=== PATIENT | female | born 1945 ===

== ENCOUNTER 2016-10-25 08:19 | Day surgery (SDC) | payer MEDICAID ==
[2016-10-25] MEDS ORDERED: Lactated Ringer's 500 ML IV ONE (08:56)
[2016-10-25] MEDS ORDERED: Propofol 10 mg/ml Inj (20 ML) ONE (09:13)
[2016-10-25] MEDS ORDERED: Lidocaine 2% MPF (5 ml) Inj ONE (09:13)
[2016-10-25 10:29] VITALS: TEMP 96.9
[2016-10-25 10:54] VITALS: BP 112/56; PULSE 68; RESP 20; O2SAT 99
== END 2016-10-25 12:40 | disposition home or self-care (01) ==
LOC: H.ENDO 08:19
PROVIDERS: ATTEND Internal Medicine Gastroenterology
DX: K30 Functional dyspepsia (principal); E11.9 Type 2 diabetes mellitus without complications; E78.5 Hyperlipidemia, unspecified; I10 Essential (primary) hypertension; F41.8 Other specified anxiety disorders
CPT/HCPCS: 43239; 88305; J2704; J7120

== ENCOUNTER 2017-01-14 11:15 | Emergency (ER) | payer MEDICAID ==
[2017-01-14 11:24] VITALS: RESP 16; TEMP 98.6
[2017-01-14] MEDS ORDERED: Sodium Chloride 0.9% 500 ML IV STA (11:49)
--- NOTE | 2017-01-14 12:04 | ED PDOC ---
HPI: Abdomen Time Seen by Provider: 01/14/17 11:36 Chief Complaint (Nursing): Abdominal Pain Chief Complaint (Provider): Vomiting, diarrhea, abdominal pain History Per: Patient History/Exam Limitations: no limitations Onset/Duration Of Symptoms: Days (1) Outside of [place] travel?: No Current Symptoms Are (Timing): Still Present Associated Symptoms: Diarrhea. denies: Fever, Chest Pain Additional History Per: Patient Additional Complaint(s): 71yo female, presents to ED for evaluation after she had 2 episodes of vomiting yesterday and had decreased appetite. She also reports today she had 8 episodes of non-bloody diarrhea, 1 episode of pink urine and also abdominal pain. Patient denies any fever, chest pain, shortness of breath or dysuria. No other medical complaints. Abnormal Vaginal Bleeding: No Past Medical History Reviewed: Historical Data, Nursing Documentation, Vital Signs Vital Signs: Last Vital Signs Temp 98.6 F 01/14/17 11:23 Pulse 80 01/14/17 19:25 Resp 16 01/14/17 19:25 BP 101/54 L 01/14/17 19:25 Pulse Ox 99 01/14/17 19:25 - Medical History PMH: Anxiety, Depression, Diabetes, HTN, Hypercholesterolemia Denies: Chronic Kidney Disease - Surgical History Surgical History: Hernia Repair (umbilical), - Family History Family History: States: No Known Family Hx, Unknown Family Hx - Home Medications Home Medications: Ambulatory Orders Medication Instructions Recorded Aspirin [Ecotrin] 81 mg PO DAILY 12/04/15 Lisinopril [Zestril] 2.5 mg PO DAILY 10/25/16 Sitagliptin Phos/Metformin HCl 1 each PO BID 10/25/16 [Janumet 50-1,000 mg Tablet] Ciprofloxacin [Cipro] 500 mg PO BID #19 tab 01/14/17 Dicyclomine [Bentyl] 20 mg PO QID PRN #10 tab 01/14/17 metroNIDAZOLE [Flagyl] 500 mg PO TID #29 tab 01/14/17 - Allergies Allergies/Adverse Reactions: Allergies Allergy/AdvReac Type Severity Reaction Status Date / Time No Known Allergies Allergy Verified 01/14/17 11:29 Review of Systems ROS Statement: Except As Marked, All Systems Reviewed And Found Negative Constitutional: Negative for: Fever, Chills Cardiovascular: Negative for: Chest Pain Respiratory: Negative for: Shortness of Breath Gastrointestinal: Positive for: Vomiting, Abdominal Pain, Diarrhea Physical Exam - Reviewed Nursing Documentation Reviewed: Yes Vital Signs Reviewed: Yes - Physical Exam Appears: Positive for: Non-toxic, No Acute Distress Head Exam: Positive for: ATRAUMATIC, NORMAL INSPECTION, NORMOCEPHALIC Skin: Positive for: Normal Color Neck: Positive for: Supple Cardiovascular/Chest: Positive for: Regular Rate, Rhythm Respiratory: Positive for: Normal Breath Sounds. Negative for: Respiratory Distress Gastrointestinal/Abdominal: Positive for: Soft, Tenderness (bilateral lower quadrant tendrness). Negative for: Guarding, Rebound Neurologic/Psych: Positive for: Alert, Oriented - Laboratory Results Result Diagrams: 01/14/17 12:12 01/14/17 12:12 - ECG O2 Sat by Pulse Oximetry: 96 (RA) Pulse Ox Interpretation: Normal Medical Decision Making Medical Decision Making: Time: 1147 Impression: Gastroenteritis, UTI, appendicitis, colitis Plan: -- CT AP w/ IV Contrast -- Labs -- Morphine 2mg IV -- Zofran 4mg IV -- IV Fluids Reassess Accession No. : [id number] Patient Name / ID : LEWIS DIANE / [id number] Exam Date : 01/14/2017 16:18:28 ( Approved ) Study Comment : Sex / Age : F / 71Y Creator : Houston George MD Dictator : Houston George MD Filter Changer : Personnel Scheduler : Houston George MD Approver2 : Report Date : 01/14/2017 17:26:55 My Comment : PROCEDURE: CT Abdomen and Pelvis with contrast HISTORY: BLQ pain, v/d COMPARISON: None. TECHNIQUE: Contrast dose: Radiation dose: Total exam DLP = mGy-cm. This CT exam was performed using one or more of the following dose reduction techniques: Automated exposure control, adjustment of the mA and/or kV according to patient size, and/or use of iterative reconstruction technique. FINDINGS: LOWER THORAX: Unremarkable. LIVER: Unremarkable. No gross lesion or ductal dilatation. GALLBLADDER AND BILE DUCTS: Unremarkable. PANCREAS: Unremarkable. No gross lesion or ductal dilatation. SPLEEN: Unremarkable. ADRENALS: Unremarkable. No mass. KIDNEYS AND URETERS: Unremarkable. No hydronephrosis. No solid mass. VASCULATURE: Unremarkable. No aortic aneurysm. BOWEL: Few distended loops of small bowel in the right lower quadrant with distention of the cecum and ascending colon with fluid. Question mild cecal wall enhancement and thickening. No small bowel obstruction. APPENDIX: Normal appendix. PERITONEUM: Unremarkable. No free fluid. No free air. LYMPH NODES: Unremarkable. No enlarged lymph nodes. BLADDER: Unremarkable. REPRODUCTIVE: Unremarkable. BONES: No acute fracture. OTHER FINDINGS: None. IMPRESSION: Few distended loops of small bowel in the right lower quadrant with distention of the cecum and ascending colon with fluid. Question mild cecal wall enhancement and thickening. No small bowel obstruction. No appendicitis. Scribe Attestation: Documented by Tisha Yu acting as a scribe for Iliana Wood MD. Provider Attestation: All medical record entries made by the Scribe were at my direction and personally dictated by me. I have reviewed the chart and agree that the record accurately reflects my personal performance of the history, physical exam, medical decision making, and the department course for this patient. I have also personally directed, reviewed, and agree with the discharge instructions and disposition. Disposition - Clinical Impression Clinical Impression: Colitis - Disposition Referrals: Antonio Lawrence MD [Family Provider] - Disposition: Routine/Home Disposition Time: 18:51 Condition: STABLE Prescriptions: Ciprofloxacin [Cipro] 500 mg PO BID #19 tab Dicyclomine [Bentyl] 20 mg PO QID PRN #10 tab PRN Reason: Pain, Moderate (4-7) metroNIDAZOLE [Flagyl] 500 mg PO TID #29 tab Instructions: Colitis (ED) Forms: [employer] [facility] (Jordanian) Print Language: ITALIAN
[2017-01-14 12:34] LABS: BASO # 0.1 K/uL (0.0-0.2); BASO % 0.7 % (0.0-2.0); EOS # 0.2 K/uL (0.0-0.7); EOS % 1.3 % (0.0-4.0); HEMATOCRIT 41.2 % (34.0-47.0); LYMPH # 1.7 K/uL (1.0-4.3); LYMPH % 14.6 % (20.0-40.0); MEAN CELL VOLUME 87.9 fl (81.0-99.0); MEAN CORPUSCULAR HEMOGLOBIN 28.9 pg (27.0-31.0); MEAN CORPUSCULAR HGB CONC 32.9 g/dL (33.0-37.0); MEAN PLATELET VOLUME 6.9 fl (7.2-11.7); MONO # 0.5 K/uL (0.0-0.8); MONO % 4.6 % (0.0-10.0); NEUT # 9.2 K/uL (1.8-7.0); NEUT % 78.8 % (50.0-75.0); NRBC % 0.1 % (0.0-0.0); RED CELL DISTRIBUTION WIDTH 13.9 % (11.5-14.5); WHITE BLOOD COUNT 11.7 K/uL (4.8-10.8)
[2017-01-14 12:45] LABS: ALB/GLOB RATIO 1.2 (1.0-2.1); ALKALINE PHOSPHATASE 89 U/L (38-126); ALT/SGPT 43 U/L (9-52); AST/SGOT 34 U/L (14-36); BILIRUBIN,TOTAL 0.6 mg/dl (0.2-1.3); BLOOD UREA NITROGEN 15 mg/dl (7-17); CALCIUM 9.4 mg/dL (8.4-10.2); CARBON DIOXIDE 22 mmol/L (22-30); CHLORIDE 97 mmol/L (98-107); GFR AFRICAN-AMERICAN > 60; GLUCOSE,RANDOM 150 mg/dL (65-105); POTASSIUM 4.7 MMOL/L (3.6-5.0); SODIUM 131 mmol/l (132-148); TOTAL PROTEIN 7.8 G/DL (6.3-8.2)
[2017-01-14 12:46] LABS: PARTIAL THROMBOPLASTIN TIME 29.3 Seconds (25.6-37.1)
[2017-01-14 14:43] LABS: RBC URINE 7 /hpf (0-3); URINE BACTERIA RARE (<OCC); URINE BILIRUBIN NEGATIVE (NEGATIVE); URINE BLOOD SMALL (NEGATIVE); URINE COLOR YELLOW (YELLOW); URINE GLUCOSE (UA) 50 mg/dL (Normal); URINE KETONE TRACE mg/dL (NEGATIVE); URINE LEUKOCYTE ESTERASE SMALL Leu/uL (Negative); URINE PROTEIN NEGATIVE (NEGATIVE); URINE UROBILINOGEN 0.2-1.0 mg/dL (0.2-1.0); WBC URINE 15 /hpf (0-5)
[2017-01-14] MEDS ORDERED: Iohexol 300 100 ML IJ ONE (16:11)
[2017-01-14] MEDS ORDERED: metroNIDAZOLE 500mg/100ml NS 100 ML IV STA (17:28)
[2017-01-14] MEDS ORDERED: Ciprofloxacin 400mg/200ml D5W 400 MG/200 ML BAG IV STA (17:28)
--- NOTE | 2017-01-14 17:28 | CT ---
PROCEDURE: CT Abdomen and Pelvis with contrast HISTORY: BLQ pain, v/d COMPARISON: None. TECHNIQUE: Contrast dose: Radiation dose: Total exam DLP = mGy-cm. This CT exam was performed using one or more of the following dose reduction techniques: Automated exposure control, adjustment of the mA and/or kV according to patient size, and/or use of iterative reconstruction technique. FINDINGS: LOWER THORAX: Unremarkable. LIVER: Unremarkable. No gross lesion or ductal dilatation. GALLBLADDER AND BILE DUCTS: Unremarkable. PANCREAS: Unremarkable. No gross lesion or ductal dilatation. SPLEEN: Unremarkable. ADRENALS: Unremarkable. No mass. KIDNEYS AND URETERS: Unremarkable. No hydronephrosis. No solid mass. VASCULATURE: Unremarkable. No aortic aneurysm. BOWEL: Few distended loops of small bowel in the right lower quadrant with distention of the cecum and ascending colon with fluid. Question mild cecal wall enhancement and thickening. No small bowel obstruction. APPENDIX: Normal appendix. PERITONEUM: Unremarkable. No free fluid. No free air. LYMPH NODES: Unremarkable. No enlarged lymph nodes. BLADDER: Unremarkable. REPRODUCTIVE: Unremarkable. BONES: No acute fracture. OTHER FINDINGS: None. IMPRESSION: Few distended loops of small bowel in the right lower quadrant with distention of the cecum and ascending colon with fluid. Question mild cecal wall enhancement and thickening. No small bowel obstruction. No appendicitis.
[2017-01-14] MEDS ORDERED: Ciprofloxacin 400mg/200ml D5W 400 MG/200 ML BAG IVPB ONE (18:43)
[2017-01-14] MEDS ORDERED: metroNIDAZOLE 500mg/100ml NS 100 ML IVPB ONE (18:43)
[2017-01-14 19:25] VITALS: BP 101/54; PULSE 80
--- NOTE | 2017-01-17 17:37 | CARD ---
APPROVED REPORT EKG Measurement Heart [id number] <Conclusion> Normal sinus rhythm Normal ECG
[2017-01-21 12:18] VITALS: O2SAT 96
== END 2017-01-14 20:30 | disposition home or self-care (01) ==
LOC: H.ER 11:15
DX: R10.9 Unspecified abdominal pain (principal); R11.10 Vomiting, unspecified; R19.7 Diarrhea, unspecified; K52.9 Noninfective gastroenteritis and colitis, unspecified; I10 Essential (primary) hypertension; Z86.59 Personal history of other mental and behavioral disorders; E11.9 Type 2 diabetes mellitus without complications; Z79.82 Long term (current) use of aspirin
CPT/HCPCS: 74177; 80053; 81003; 85025; 85610; 85730; 93005; 96365; 96367; 96375; 99283; J0744; J2270; J2405; J7040; Q9967

== ENCOUNTER 2017-05-29 07:46 | Day surgery (SDC) | payer MEDICAID ==
[2017-05-29] MEDS ORDERED: Lactated Ringer's 1,000 ML IV ONE (08:03)
[2017-05-29] MEDS ORDERED: Propofol 10 mg/ml Inj (20 ML) ONE (08:13)
[2017-05-29 09:13] VITALS: BP 107/63; PULSE 70; RESP 19; TEMP 97.4; O2SAT 97
== END 2017-05-29 09:57 | disposition home or self-care (01) ==
LOC: H.ENDO 07:46
PROVIDERS: ATTEND Internal Medicine Gastroenterology
DX: Z12.11 Encounter for screening for malignant neoplasm of colon (principal); E11.9 Type 2 diabetes mellitus without complications; I10 Essential (primary) hypertension; F41.8 Other specified anxiety disorders; D12.3 Benign neoplasm of transverse colon
CPT/HCPCS: 45385; 82948; 88305; J2001; J2704; J7120